=== PATIENT | male | born 1990 | race Caucasian/White ===

== ENCOUNTER 2024-09-07 12:36 | Emergency (ER) | payer BC, OTHER ==
[2024-09-07 14:03] LABS: Hematocrit 46.2 % (42.0-52.0); Hemoglobin 15.5 g/dL (14.0-18.0); Mean Corpuscular HGB CONC 33.5 g/dL (32.0-36.0); Mean Corpuscular Hemoglobin 30.8 pg (27.0-31.0); Mean Corpuscular Volume 91.8 fL (78.0-98.0); Mean Platelet Volume 10.4 fL (7.4-10.4); Platelet Count 63 10x3/uL (130-400); RBC Distribution Width 13.2 % (11.5-14.5); Red Blood Cell (RBC) Count 5.03 mill/uL (4.70-6.10)
[2024-09-07 14:19] LABS: ALT (SGPT) 55 U/L (8-55); AST (SGOT) 35 U/L (5-34); Albumin 4.8 g/dL (3.5-5.0); Alkaline Phosphatase 53 U/L (40-110); Anion Gap 12 mmol/L (10-20); BUN (Urea Nitrogen) 8 mg/dL (8.9-20.6); Bilirubin, Total 0.8 mg/dL (0.2-1.2); Calc. Creatinine Clearance 0 mL/min (70-130); Calcium 9.4 mg/dL (7.8-10.44); Carbon Dioxide 28 mmol/L (22-29); Chloride 104 mmol/L (98-107); Estimated GFR 114; Globulin 3.1 g/dL (2.4-3.5); Glucose 75 mg/dL (70-105); Magnesium 2.2 mg/dL (1.6-2.6); Potassium 3.6 mmol/L (3.5-5.1); Protein, Total 7.9 g/dL (6.0-8.3); Sodium 140 mmol/L (136-145)
[2024-09-07 14:22] LABS: Platelet Adequacy Comment Platelets Decreased
== END 2024-09-07 14:49 | disposition home or self-care (01) ==
LOC: ERS 12:36
DX: R42 Dizziness and giddiness (principal); D69.6 Thrombocytopenia, unspecified
CPT/HCPCS: 36415; 36416; 80053; 83735; 85025; 99284